=== PATIENT | female | born 1950 | race Caucasian/White ===

== ENCOUNTER → 2022-01-31 | Day surgery (SDC) | payer OTHER ==
[~2022-01-31] VITALS: Ht 157.5 cm; Wt 62.2 kg
[~2022-01-31] MED LIST: ALLOPURINOL100 MG PO; AMLODIPINE BESYL5 MG PO; ASPIRIN EC81 MG PO; HYDROXYZINE PO; LIPITOR40 MG PO; NEXIUM40 MG PO; TENORMIN50 MG PO; TRIAMTERENE-HC1 EAC3 PO; VITAMIN D325 MC1 PO
== END | disposition home or self-care (01) ==
LOC: FAS 08:17
DX: D12.0 Benign neoplasm of cecum (principal); D12.3 Benign neoplasm of transverse colon; I10 Essential (primary) hypertension; I48.91 Unspecified atrial fibrillation; K21.9 Gastro-esophageal reflux disease without esophagitis; Z79.82 Long term (current) use of aspirin; Z79.899 Other long term (current) drug therapy; Z88.8 Allergy status to other drugs, medicaments and biological substances
CPT/HCPCS: J2250; J2704; J7120